=== PATIENT | female | born 1975 | race Hispanic/Latino ===

== ENCOUNTER 2016-12-20 13:28 | Emergency (ER) ==
[2016-12-20] MEDS ORDERED: NORCO-7.5 PO ONE (14:40)
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
[2016-12-20 15:13] LABS: URINE MICRO REVIEW NEEDED? NO; URINE SOURCE CLEAN CATCH
[2016-12-20 15:34] LABS: BILIRUBIN URINE NEGATIVE (NEGATIVE); BLOOD URINE NEGATIVE (NEGATIVE); COLOR YELLOW; GLUCOSE URINE NEGATIVE (NEGATIVE); LEUKOCYTES URINE NEGATIVE (NEGATIVE); NITRITE URINE NEGATIVE (NEGATIVE); PH URINE 6.5; PROTEIN URINE NEGATIVE (NEGATIVE); SP GRAVITY URINE 1.003; TURBIDITY URINE CLEAR (CLEAR); UROBILINOGEN URINE NORMAL (NORMAL)
[2016-12-20 15:36] LABS: UR EPITHELIAL CELLS <10 /HPF (<10); URINE BACTERIA 4+ /HPF; URINE CULTURE NEEDED? YES; URINE RBC <10 /HPF (<10); URINE WBC <10 /HPF (<10)
--- NOTE | 2016-12-20 16:02 | Diag Imaging Result Document ---
PROCEDURE NAME: XRAY PELVIS W/HIP 2-3VW RT - 12/20/2016 PLAIN RADIOGRAPH OF THE PELVIS AND RIGHT HIP 3 VIEWS: COMPARISON: None available. FINDINGS: There is a metallic medullary henry associated with the right femur. There are healed fractures involving the inferior and superior pubic rami bilaterally. There is no evidence of acute fracture, dislocation, or intrinsic osseous lesion, otherwise. Surrounding soft tissues are grossly unremarkable. IMPRESSION: Chronic findings as described. No definite acute osseous abnormality.
[2016-12-20 16:14] VITALS: BP 135/76
== END 2016-12-20 16:11 | disposition home or self-care (01) ==
LOC: ED 13:28
DX: G89.29 Other chronic pain (principal); M25.551 Pain in right hip; M25.561 Pain in right knee; L90.5 Scar conditions and fibrosis of skin
CPT/HCPCS: 81001; 81025; 87077; 87088; 87186; 99284